=== PATIENT | female | born 1990 | race African-American/Black ===

== ENCOUNTER 2018-05-13 08:18 | Emergency (ER) | payer SELFPAY ==
[~2018-05-13] VITALS: Ht 167.6 cm; Wt 113.6 kg
[2018-05-13 08:26] VITALS: BP 126/72; TEMP 98.2
[2018-05-13] MEDS ORDERED: CLARITIN-D 10 M1 T24 PO (08:49)
[2018-05-13] MEDS ORDERED: FLONASEALLERGY NS (08:49)
[2018-05-13 08:59] VITALS: PULSE 53
== END 2018-05-13 08:58 | disposition home or self-care (01) ==
LOC: COL.ER 08:18
DX: J32.9 Chronic sinusitis, unspecified (principal); J30.2 Other seasonal allergic rhinitis

== ENCOUNTER 2018-06-29 22:17 | Emergency (ER) | payer SELFPAY ==
[~2018-06-29] VITALS: Ht 167.6 cm; Wt 109.1 kg
[~2018-06-29 22:17] MED LIST: CLARITIN-D 10 M1 T24 PO; FLONASEALLERGY NS
[2018-06-29 22:20] VITALS: TEMP 97.9
[2018-06-29 23:02] LABS: BASO # 0.1 (0.0-0.2); BASO % 0.6 % (0.0-2.0); EOS # 0.1 (0.0-0.7); EOS % 0.8 % (0-4.0); GRAN % 47.6 % (42.2-75.2); HEMOGLOBIN 11.5 g/dl (12.5-16.0); LYMPH # 3.4 (1.2-3.4); LYMPH % 41.3 % (20.0-51.0); MEAN CELL VOLUME 79 fl (80.0-100.0); MEAN CORPUSCULAR HEMOGLOBIN 26 pg (27.0-31.0); MEAN CORPUSCULAR HGB CONC 33 g/dl (33.0-37.0); MEAN PLATELET VOLUME 11.4 fl (7.4-10.4); MONO # 0.8 (0.1-0.6); MONO % 9.5 % (1.7-9.3); PLATELET COUNT 227 K/mm3 (130-400); REDCELL DISTRIBUTION WIDTH-CV 14.3 % (11.5-14.5)
[2018-06-29 23:05] LABS: HEMATOCRIT 35.4 % (37.0-47.0)
[2018-06-29 23:13] LABS: ALANINE AMINOTRANSFERASE 33 U/L (9-52); ALBUMIN 4.1 gm/dL (3.5-5.0); ALKALINE PHOSPHATASE 78 U/L (50-136); ANION GAP 10 mmol/L (7-16); AST,SGOT 26 U/L (15-37); BILIRUBIN,TOTAL 0.3 mg/dL (0.0-1.0); BLOOD UREA NITROGEN 9 mg/dL (7-17); CALCIUM 9.5 mg/dL (8.4-10.2); CARBON DIOXIDE 26 mmol/L (22-30); CHLORIDE 101 mmol/L (98-107); CREATININE, serum 0.95 mg/dL (0.52-1.25); GLUCOSE 93 mg/dL (74-106); LIPASE 137 U/L (23-300); POTASSIUM 4.3 mmol/L (3.4-5.0); SODIUM 137 mmol/L (137-145); TOTAL PROTEIN 7.4 gm/dL (6.4-8.2)
[2018-06-29 23:23] LABS: COLLECTION METHOD CLEAN CATCH
[2018-06-29 23:24] LABS: TROPONIN-I < 0.012 ng/mL (0.000-0.034)
[2018-06-29 23:29] LABS: MUCOUS Present /lpf; PH 6 (5-8); SQUAMOUS EPITHELIAL 0-2 /hpf; URINE APPEARANCE Clear; URINE BACTERIA None Seen /hpf; URINE BILIRUBIN Negative (NEGATIVE); URINE BLOOD Negative (NEGATIVE); URINE COLOR Colorless; URINE GLUCOSE Negative (NEGATIVE); URINE KETONE Negative (NEGATIVE); URINE LEUKOCYTE ESTERASE Negative (NEGATIVE); URINE NITRATE Negative (NEGATIVE); URINE PROTEIN(semi-quant) Negative (NEGATIVE); URINE RBC 0-2 /hpf; URINE UROBILINOGEN Negative (NEGATIVE)
[2018-06-30] MEDS ORDERED: ATIVAN 0.50.5 MG/TAB PO (00:31)
[2018-06-30 00:40] VITALS: BP 121/64; PULSE 85
== END 2018-06-30 00:40 | disposition home or self-care (01) ==
LOC: COL.ER 22:17
PROVIDERS: Nurse Practitioner
DX: R07.89 Other chest pain (principal); F41.9 Anxiety disorder, unspecified; Z98.890 Other specified postprocedural states
CPT/HCPCS: Q9967

== ENCOUNTER 2019-08-06 10:17 | Emergency (ER) | payer OTHER, MEDICAID ==
[~2019-08-06] VITALS: Ht 170.2 cm; Wt 113.6 kg
[~2019-08-06 10:17] MED LIST changes: +ATIVAN 0.50.5 MG/TAB PO; +NAPROSYN 2250 MG/TAB PO
[2019-08-06 10:46] VITALS: BP 143/76; PULSE 63; TEMP 97.8
[2019-08-06 11:57] LABS: COLLECTION METHOD CLEAN CATCH
[2019-08-06 12:06] LABS: PH 8 (5-8); SQUAMOUS EPITHELIAL 0-2 /hpf; URINE APPEARANCE Clear; URINE BACTERIA None Seen /hpf; URINE BILIRUBIN Negative (NEGATIVE); URINE BLOOD Negative (NEGATIVE); URINE COLOR Straw; URINE GLUCOSE Negative (NEGATIVE); URINE KETONE Negative (NEGATIVE); URINE LEUKOCYTE ESTERASE Negative (NEGATIVE); URINE NITRATE Negative (NEGATIVE); URINE PROTEIN(semi-quant) Negative (NEGATIVE); URINE UROBILINOGEN Negative (NEGATIVE)
== END 2019-08-06 12:55 | disposition home or self-care (01) ==
LOC: COL.ER 10:17
PROVIDERS: Nurse Practitioner
DX: N89.8 Other specified noninflammatory disorders of vagina (principal); Z79.51 Long term (current) use of inhaled steroids

== ENCOUNTER 2019-12-09 23:50 | Emergency (ER) | payer MEDICAID ==
[~2019-12-09] VITALS: Ht 167.6 cm; Wt 113.6 kg
[2019-12-10] VITALS: BP 129/76; PULSE 61; TEMP 97.4
[2019-12-10] MEDS ORDERED: PREDNISONE20 MG PO (00:18)
[2019-12-10] MEDS ORDERED: ZITHROMAX Z PA250 MG PO (00:18)
== END 2019-12-10 00:34 | disposition home or self-care (01) ==
LOC: COL.ER 23:50
DX: R09.81 Nasal congestion (principal)
CPT/HCPCS: J7512

== ENCOUNTER 2020-01-03 18:50 | Emergency (ER) | payer MEDICAID ==
[~2020-01-03] VITALS: Ht 170.2 cm; Wt 113.6 kg
[~2020-01-03 18:50] MED LIST changes: +PREDNISONE20 MG PO; +ZITHROMAX Z PA250 MG PO
[2020-01-03 18:55] VITALS: TEMP 98.9
[2020-01-03] MEDS ORDERED: CELEXA 20MG20 MG/TAB PO (18:58)
[2020-01-03] MEDS ORDERED: ANUSOL HC CREAM30 GM TP (19:52)
[2020-01-03 20:05] VITALS: BP 135/93; PULSE 85
== END 2020-01-03 20:05 | disposition home or self-care (01) ==
LOC: COL.ER 18:50
DX: S31.831A Laceration without foreign body of anus, initial encounter (principal); X58.XXXA Exposure to other specified factors, initial encounter